=== PATIENT | female | born 1965 | race Caucasian/White ===

== ENCOUNTER 2017-03-26 09:37 | Emergency (ER) | payer OTHER, MEDICAID ==
[2017-03-26 10:00] VITALS: BP 146/87
[2017-03-26] MEDS ORDERED: methylPREDNISolone 125 MG* 2 ML VIAL IM ONE (10:36)
--- NOTE | 2017-03-26 10:45 | UC ---
Skin Complaint HPI - HPI Summary HPI Summary: Progressive redness, warmth and swelling of the left arm following a flu shot earlier this week. History of at least 4 episodes of focal swelling and redness following bites this year, began after a lone star tick bite. Had urticaria around the shoulder following the injection, but yesterday developed increasing swelling and tightness in the left arm. No fever and does not feel unwell. took loratidine and benadryl with no relief. No previous hx of allergy. - History of Current Complaint Chief Complaint: UCAllergicReaction Time Seen by Provider: 03/26/17 10:24 Stated Complaint: LEFT ARM SKIN COMPLAINT Hx Obtained From: Patient ?: No Onset/Duration: Gradual Onset, Lasting Days - 4, Worse Since - yesterday Skin Exposure Onset/Duration: Days Ago Timing: Constant Onset Severity: Moderate Current Severity: Severe Pain Intensity: 7 Pain Scale Used: 0-10 Numeric Location: Discrete - left upper arm and forearm Aggravating Factor(s): Touch Alleviating Factor(s): Nothing Associated Signs & Symptoms: Positive: Negative Similar Episode/Dx as: recurrent urticarial reaction, recurrent cellulitis, tested negative for MRSA and Strep over the past several months. - Allergy/Home Medications Allergies/Adverse Reactions: Allergies Allergy/AdvReac Type Severity Reaction Status Date / Time Iodinated Diagnostic Agents Allergy Diaphoresis Verified 03/26/17 09:54 and Nausea Procaine [From Novocain] Allergy Swelling Verified 03/26/17 09:54 Metronidazole [From Flagyl] AdvReac Vomiting Verified 03/26/17 09:54 Home Medications: Home Medications Atenolol TAB* [Tenormin TAB* 25 MG] 25 mg PO DAILY 03/26/17 [History Confirmed 03/26/17] Levothyroxine TAB* [Synthroid TAB*] 100 mcg PO DAILY 03/26/17 [History Confirmed 03/26/17] LoraTADine TAB(NF) [Claritin 10 MG TAB(NF)] 10 mg PO DAILY PRN 03/26/17 [ History Confirmed 03/26/17] Metoprolol Tartrate TAB* [Lopressor TAB*] 25 mg PO DAILY 03/26/17 [History Confirmed 03/26/17] Review of Systems Skin: Rash, Other - swelling Psychological: Other - presently high level of stress, her aunt is dying, etc. Is Patient Immunocompromised?: No - history of low white count off and on. All Other Systems Reviewed And Are Negative: Yes PMH/Surg Hx/FS Hx/Imm Hx Endocrine History: Hypothyroidism Cardiovascular History: Hypertension - Surgical History Surgical History: Yes Surgery Procedure, Year, and Place: Hysterectomy with Bladder Lift, Cornea Transplant, Left Shoulder - Family History Known Family History: Positive: Other - son with food allergies, no other FH of allergies/ asthma. - Social History Occupation: Employed Full-time - EKG and cvt tech, [employer]. Lives: With Family Alcohol Use: None Substance Use Type: None Smoking Status (MU): Heavy Every Day Tobacco Smoker Type: Cigarettes Amount Used/How Often: 1/2 PPD Length of Time of Smoking/Using Tobacco: Since Age 22 - Immunization History Most Recent Influenza Vaccination: 03/20/17 Most Recent Tetanus Shot: "Recent" Physical Exam Triage Information Reviewed: Yes Appearance: Well-Appearing, Obese Vital Signs: Initial Vital Signs Temp 98.4 F 03/26/17 09:49 Pulse 84 03/26/17 09:49 Resp 16 03/26/17 09:49 BP 146/87 03/26/17 09:49 Pulse Ox 100 03/26/17 09:49 Vital Signs Reviewed: Yes Eyes: Positive: Conjunctiva Clear ENT: Positive: Normal ENT inspection Respiratory: Positive: Lungs clear, Normal breath sounds, No respiratory distress Cardiovascular: Positive: RRR, No Murmur Musculoskeletal Exam: Normal Neurological Exam: Normal Neurological: Positive: Alert, Muscle Tone Normal Psychological Exam: Normal Skin Exam: Other - left arm with swelling from mid upper arm to wrist, no hand swelling, 35 cm. Circuferential swelling most tense in the upper right forearm, which is 4 cm > left side. Tense, warm, eryethematous. No lymphangitis. Re-Evaluation - Re-Evaluation First Eval Re-Evaluation Time: 11:30 Change: Unchanged - tolerated injection, arm still swollen Course/Dx - Course Course Of Treatment: gioven solumedrol due to amount of swelling. Discussed that this may all be allergy mediated rather than cellulitis. - Diagnoses Provider Diagnoses: allergic reaction. Discharge - Discharge Plan Condition: Stable Disposition: HOME Prescriptions: Cephalexin CAP* [Keflex 500 CAP*] 500 mg PO TID #30 cap predniSONE TAB* [Deltasone TAB*] 10 mg PO DAILY #42 tab Patient Education Materials: Allergies (ED) Referrals: Non Staff,Doctor [Primary Care Provider] - Additional Instructions: You have been given a dose of solumedrol today, and you have a tapering dose of prednisone for 12 days. If you respond quickly, you can taper more quickly eg taking each dose for a single day rather than 2. Begin the cephalexin if there is persistent redness suggestive of a skin infection. I think it highly likely that you will need to see an picker feeder.
== END 2017-03-26 11:38 | disposition home or self-care (01) ==
LOC: UCCORT 09:37
DX: T78.40XA Allergy, unspecified, initial encounter (principal); X58.XXXA Exposure to other specified factors, initial encounter; I10 Essential (primary) hypertension; E03.9 Hypothyroidism, unspecified; F17.210 Nicotine dependence, cigarettes, uncomplicated
CPT/HCPCS: 96372; 99202; G0463; J2930